=== PATIENT | female | born 1990 | race Caucasian/White ===

== ENCOUNTER 2019-12-13 08:52 | Emergency (ER) | payer OTHER ==
[~2019-12-13] VITALS: Ht 157.5 cm; Wt 74.8 kg
[2019-12-13 08:53] VITALS: Ht 157.5 cm; Wt 74.8 kg
[2019-12-13 10:50] VITALS: BP 115/75
== END 2019-12-13 10:50 | disposition home or self-care (01) ==
LOC: ED 08:52
DX: M54.2 Cervicalgia (principal); M54.6 Pain in thoracic spine; M25.552 Pain in left hip
CPT/HCPCS: J1885; Q0092